=== PATIENT | male | born 1975 | race Caucasian/White ===

== ENCOUNTER 2022-08-20 16:02 | Inpatient (IN) | payer OTHER, SELFPAY ==
--- NOTE | ~2022-08-20 | XR_ITS ---
EXAMINATION: XR KNEE, RIGHT CLINICAL INFORMATION: Skin infection COMPARISON: None TECHNIQUE: Two views of the right knee. FINDINGS: No acute fracture or dislocation. No joint effusion. Mild soft tissue prominence anterior to the patella and patellar ligament. No radiopaque foreign bodies. XR/XR knee RT 2V IMPRESSION: No acute osseous abnormalities. Mild skin thickening anterior to the inferior patella and patellar ligament.
--- NOTE | ~2022-08-20 | US_ITS ---
EXAMINATION: US VENOUS ULTRASOUND WITH DOPPLER LOWER EXTREMITY, LEFT CLINICAL INFORMATION: Left leg swelling for 2 days. COMPARISON: None TECHNIQUE: Ultrasound of the deep veins is performed from the hip to the calf with compression sonography and color and pulse Doppler assessment. Spectral analysis with color-flow imaging is performed. FINDINGS: There is normal venous compression and respiratory variation and augmented flow. The visualized common femoral vein, superficial femoral vein, profunda femoral vein, popliteal vein, and the trifurcation region shows no evidence of deep venous thrombosis. There is no significant popliteal fossa cyst. Couple of small morphologically normal-appearing left inguinal lymph nodes noted incidentally. Subcutaneous edema in the calf also seen. If the patient's symptoms persist, followup ultrasound in 5 days 7 days might be of value to exclude proximal propagation from a non-visualized calf vein. US/US venous duplex LE IMPRESSION: No DVT demonstrated in the left lower extremity.
--- NOTE | ~2022-08-20 | CT_ITS ---
EXAMINATION: CT HAND WITH CONTRAST, RIGHT CLINICAL INFORMATION: Abscess COMPARISON: None TECHNIQUE: Multidetector CT imaging of the right hand was performed after the administration of 85 mL Omnipaque 350 intravenous contrast. Coronal and sagittal reformats created on an independent workstation were reviewed. This CT examination was performed using dose optimization techniques as appropriate, variously including the following: *Automated exposure control *Adjustment of mA and/or kV according to patient size (this includes techniques or standardized protocols for targeted exams where dose is matched to indication/reason for exam; i.e. extremities or head) *Use of iterative reconstruction technique DLP: 131 mGy-cm FINDINGS: There is diffuse skin thickening and edema throughout the subcutaneous fat of the hand and distal wrist. There is ill-defined fluid superficial to the thenar musculature which does not appear to be peripherally enhancing. The palmar bursae and flexor tendon sheaths of the wrist show no abnormal fluid to suggest pulmonary bursitis or tenosynovitis, respectively. No periosteal reaction or cortical destruction to suggest osteomyelitis. CT/CT hand RT w IV con IMPRESSION: * Normal palmar bursae and tendon sheaths. * No evidence of osteomyelitis. * Diffuse subcutaneous edema present throughout the hand. There is more coalescent edema professionals of the thenar eminence (see cevallos images). A targeted ultrasound in this location could confirm that there is no drainable collection in this location, or collection at could be amenable to incision and drainage.
--- NOTE | ~2022-08-20 | CT_ITS ---
EXAMINATION: CT LEFT FOOT WITHOUT IV CONTRAST CLINICAL INFORMATION: Diabetic foot wound. Swelling. COMPARISON: None TECHNIQUE: Multidetector volumetric imaging was obtained through the left foot without contrast. Multiplanar reformatted images in coronal and sagittal orientations were submitted. This CT examination was performed using dose optimization techniques as appropriate, variously including the following: *Automated exposure control *Adjustment of mA and/or kV according to patient size (this includes techniques or standardized protocols for targeted exams where dose is matched to indication/reason for exam; i.e. extremities or head) *Use of iterative reconstruction technique DLP: 148 mGy-cm FINDINGS: There is diffuse soft tissue swelling and subcutaneous edema in the foot. The site of the known ulceration is not well seen. There is subtle skin irregularity at the plantar/lateral aspect of the midfoot over an area measuring approximately 1.4 x 2.4 cm. No underlying fluid collections or subcutaneous gas. At the plantar aspect of the 5th metatarsal head, there is an ill-defined 2 x 0.7 x 1 cm focus of near-fluid attenuation which may correspond to an adventitious bursa. A small abscess is on the differential, though less likely based upon location. No additional fluid collections are identified. Intrinsic foot musculature is unremarkable. No appreciable fatty replacement. No gas. Bone mineralization is normal. No areas of acute osteolysis are identified to indicate acute osteomyelitis. Osteophyte fragmentation at the dorsolateral aspect of the cuboid at the 4th and 5th TMT joint may be the result of prior trauma. No acute injuries in this region. Minimal osteoarthritis of the 4th and 5th TMT joints. Small chronic osseous fragments at the posterior margin of the talus may correspond to a small multipartite os trigonum. CT/CT foot LT wo IV con IMPRESSION: 1. Diffuse soft tissue swelling and subcutaneous edema in the ankle and foot. Possible shallow skin wound at the plantar lateral aspect of the midfoot. No underlying abscess. No subcutaneous gas or evidence of osteomyelitis. 2. A small adventitious bursa is suspected at the plantar/lateral margin of the 5th metatarsal head. Abscess in this region is less likely.
[2022-08-20 16:09] VITALS: BP 184/102; PULSE 96; O2SAT 97
[2022-08-20 16:50] VITALS: BP 117/65; PULSE 96; RESP 18; TEMP 36.4; O2SAT 97; BMI 36.2
[2022-08-20 17:18] LABS: MANUAL DIFF FLAG NO
[2022-08-20 17:28] LABS: D Dimer High Sensitivity 224 NG/ML
[2022-08-20 17:30] LABS: Lactic Acid 1.2 mmol/L (0.5-2.0)
[2022-08-20 17:31] LABS: Basophils Percent Auto 0.3 % (0-2); Eosinophils Absolute Auto 0.2 X10*3/uL (0.0-0.4); Eosinophils Percent Auto 1.4 % (0-4); Hematocrit 38.7 % (42.0-52.0); Hemoglobin 13.3 g/dl (14.0-18.0); Imm Gran Abs Auto 0.13 X10*3/uL (0.00-0.03); Lymphocytes Absolute Auto 1.9 X10*3/uL (1.2-4.9); Lymphocytes Percent Auto 14.5 % (20-40); Mean Corpuscular HGB Conc 34.4 g/dl (31.0-36.0); Mean Corpuscular Hemoglobin 29.8 pg (27.0-33.0); Mean Corpuscular Volume 86.6 fL (80.0-98.0); Mean Platelet Volume 10.7 fL (9.4-12.4); Monocytes Percent Auto 7.2 % (2-11); Neutrophils Percent Auto 75.6 % (45-73); Platelet Count 238 X10*3/uL (160-400); Red Blood Count 4.47 X10*6/uL (4.60-5.80); White Blood Count 13.2 X10*3/uL (4.8-10.8)
[2022-08-20 17:35] LABS: Alanine Aminotransferase 25 U/L (0-40); Albumin Level 4.2 g/dL (3.5-5.0); Alkaline Phosphatase 83 U/L (39-117); Anion Gap 17 (12-20); Aspartate Amino Transferase 18 U/L (5-37); Bilirubin Total 0.4 mg/dL (0.0-1.0); Blood Urea Nitrogen 14 mg/dL (9-16); Calcium 8.9 mg/dL (8.4-10.2); Carbon Dioxide 25 mmol/L (22-29); Chloride 99 mmol/L (96-108); Creatinine Clr Calc Pharmacy 125.4; Estimated Glomerular Filt Rate > 60; Glucose Random 207 mg/dL (60-115); Potassium 3.6 mmol/L (3.3-5.1); Sodium 137 mmol/L (135-145); Total Protein 7.2 g/dL (6.5-8.0)
[2022-08-20 21:38] VITALS: BP 124/64; PULSE 77; RESP 18; TEMP 36.2; O2SAT 98
[2022-08-20] MEDS: Ibuprofen 600 MG TABLET PO (21:47)
[2022-08-20 22:00] VITALS: BP 114/59; PULSE 72; RESP 14; TEMP 36.5; O2SAT 97
--- NOTE | 2022-08-20 22:46 | ED.GENADULT ---
HPI - General Adult General Chief complaint: Skin/Abscess/Foreign Body Stated complaint: LOWER LEG SWELLING + PAIN Time Seen by Provider: 08/20/22 22:30 Source: patient Mode of arrival: EMS Limitations: no limitations History of Present Illness HPI narrative: Patient diabetic IV drug user notices small scab on the right and and left knee 2- 3 days ago woke with a needle yesterday to drain the pimple in the hand, today patient overslept was semi responsive when family woke him up has increased redness to the left leg and swelling and pain in the right hand Related Data Allergies Allergy/AdvReac Type Severity Reaction Status Date / Time Penicillins [PENICILLINS] Allergy Unknown UNKNOWN Verified 08/20/22 16:50 Review of Systems Review of Systems: Yes all other systems are reviewed and are negative [facility] Social History Social History Advance Directives: No Advance Directives Information Provided: No Physical Exam ED Vital Signs: Vital Signs - 24 hr 08/20/22 16:50 08/20/22 21:38 08/20/22 22:00 Temperature 97.5 F 97.1 F 97.7 F Pulse Rate 96 77 72 Respiratory Rate 18 18 14 Blood Pressure 117/65 124/64 114/59 L Pulse Oximetry 97 98 97 Oxygen Delivery Method Room Air Room Air Room Air BMI result Body Mass Index 36.2 Appearance: Alert. Oriented X3. No acute distress. Eyes: PERRLA, No Nystagmus ENT: Pharynx normal. Oral Mucosa moist Neck: Normal inspection. Neck supple. CVS: Normal heart rate and rhythm. Pulses normal. Respiratory: No respiratory distress. Equal air entry bilateral, no wheezing/rales/rhonchi Abdomen: Soft and nontender. Bowel sounds are present, no mass palpable, no CVA tenderness Skin: Skin warm and dry. Normal skin color. Normal skin turgor. Extremities: Small scab left kneecap diffuse cellulitis and swelling of the left leg no abscess, right hand abscess at the right thenar prominence area Neuro: Oriented X 3. No motor deficit. No sensory deficit.No cerebellar signs , cranial nerves II-XII intact Extrem Hand/finger images: 1. Fluctuant abscess right thenar prominence with surrounding erythema 2. Small superficial abrasion abscess no fluctuance slight erythema around Upper/lower leg/hip images: 1. Small superficial callus no fluctuance see no pus discharge erythema all the way from knee to the ankle Procedures Abscess I/D Site: hand Side (if applicable): right Local Anesthetic: lidocaine 1% Amount of anesthesia used (mL): 5 Technique: incised with blade Amount of fluid expressed (mL): 5 Sent for culture/gram staining?: Yes Irrigation: No Packing used?: none Medical Decision Making MDM Narrative Medical decision making narrative: Patient with multiple abscesses IV drug use diabetic likely MRSA infection with cellulitis of left leg. Will admit patient for IV antibiotics cultures was taken from the abscess after I&D. Will admit patient for IV antibiotics Lab Data Lab results reviewed: Yes I reviewed the patient's lab results. Result diagrams: 08/20/22 17:10 08/20/22 17:10 Labs: Lab Results 08/20/22 08/20/22 08/20/22 Range/Units 17:10 17:10 17:10 WBC 13.2 H (4.8-10.8) X10*3/uL RBC 4.47 L (4.60-5.80) X10*6/uL Hgb 13.3 L (14.0-18.0) g/dl Hct 38.7 L (42.0-52.0) % MCV 86.6 (80.0-98.0) fL MCH 29.8 (27.0-33.0) pg MCHC 34.4 (31.0-36.0) g/dl RDW 13.0 (11.0-16.0) % Plt Count 238 (160-400) X10*3/uL MPV 10.7 (9.4-12.4) fL Immature Gran % (Auto) 1.0 H (0.0-0.4) % Neut % (Auto) 75.6 H (45-73) % Lymph % (Auto) 14.5 L (20-40) % Jack % (Auto) 7.2 (2-11) % Eos % (Auto) 1.4 (0-4) % Baso % (Auto) 0.3 (0-2) % Lymph # (Auto) 1.9 (1.2-4.9) X10*3/uL Jack # (Auto) 1.0 (0.1-1.2) X10*3/uL Eos # (Auto) 0.2 (0.0-0.4) X10*3/uL Baso # (Auto) 0.0 (0.0-0.2) X10*3/uL Abs Immat Gran (auto) 0.13 H (0.00-0.03) X10*3/uL Absolute Neuts (auto) 10.0 H (2.0-8.3) x10*3/uL Absolute Nucleated RBC 0.000 (0.0-0.012) X10*3/uL Nucleated RBC % (auto) 0.0 (0.0-0.2) /100WBC PT (10.0-13.1) SEC INR (0.9-1.1) D-Dimer High Sensitivty 224 NG/ML Sodium 137 (135-145) mmol/L Potassium 3.6 (3.3-5.1) mmol/L Chloride 99 (96-108) mmol/L Carbon Dioxide 25 (22-29) mmol/L Anion Gap 17 (12-20) BUN 14 (9-16) mg/dL Creatinine 1.01 (0.5-1.4) mg/dL Estim Creat Clear Calc 125.4 Estimated GFR > 60 Random Glucose 207 H (60-115) mg/dL Lactic Acid (0.5-2.0) mmol/L Calcium 8.9 (8.4-10.2) mg/dL Total Bilirubin 0.4 (0.0-1.0) mg/dL AST 18 (5-37) U/L ALT 25 (0-40) U/L Alkaline Phosphatase 83 (39-117) U/L Total Protein 7.2 (6.5-8.0) g/dL Albumin 4.2 (3.5-5.0) g/dL COVID-19 (SOFY) (Negative) COVID-19 Clin Com 08/20/22 08/20/22 08/20/22 Range/Units 17:10 23:41 23:42 WBC (4.8-10.8) X10*3/uL RBC (4.60-5.80) X10*6/uL Hgb (14.0-18.0) g/dl Hct (42.0-52.0) % MCV (80.0-98.0) fL MCH (27.0-33.0) pg MCHC (31.0-36.0) g/dl RDW (11.0-16.0) % Plt Count (160-400) X10*3/uL MPV (9.4-12.4) fL Immature Gran % (Auto) (0.0-0.4) % Neut % (Auto) (45-73) % Lymph % (Auto) (20-40) % [place] % (Auto) (2-11) % Eos % (Auto) (0-4) % Baso % (Auto) (0-2) % Lymph # (Auto) (1.2-4.9) X10*3/uL [place] # (Auto) (0.1-1.2) X10*3/uL Eos # (Auto) (0.0-0.4) X10*3/uL Baso # (Auto) (0.0-0.2) X10*3/uL Abs Immat Gran (auto) (0.00-0.03) X10*3/uL Absolute Neuts (auto) (2.0-8.3) x10*3/uL Absolute Nucleated RBC (0.0-0.012) X10*3/uL Nucleated RBC % (auto) (0.0-0.2) /100WBC PT 12.1 (10.0-13.1) SEC INR 1.1 (0.9-1.1) D-Dimer High Sensitivty NG/ML Sodium (135-145) mmol/L Potassium (3.3-5.1) mmol/L Chloride (96-108) mmol/L Carbon Dioxide (22-29) mmol/L Anion Gap (12-20) BUN (9-16) mg/dL Creatinine (0.5-1.4) mg/dL Estim Creat Clear Calc Estimated GFR Random Glucose (60-115) mg/dL Lactic Acid 1.2 (0.5-2.0) mmol/L Calcium (8.4-10.2) mg/dL Total Bilirubin (0.0-1.0) mg/dL AST (5-37) U/L ALT (0-40) U/L Alkaline Phosphatase (39-117) U/L Total Protein (6.5-8.0) g/dL Albumin (3.5-5.0) g/dL COVID-19 (SOFY) Negative (Negative) COVID-19 Clin Com See Note Discharge Plan Discharge Clinical Impression: Cellulitis, Abscess of skin or subcutaneous tissue Patient Disposition: Admitted As Inpatient
[2022-08-21 00:06] LABS: COVID-19 Test Negative (Negative)
[2022-08-21 00:11] LABS: INTERNATIONAL NORM RATIO 1.1 (0.9-1.1); Prothrombin Time 12.1 SEC (10.0-13.1)
[2022-08-21] MEDS: 0.9 % Sodium Chloride 1,000 ML 999 ML IV (00:20)
[2022-08-21] MEDS: cefTRIAXone sodium 1 GM in 0.9 % Sodium Chloride 50 ML IV (00:21)
[2022-08-21] MEDS: Lidocaine HCl 1 % MPF 5 ML VIAL 30 ML INFILTRATI (00:27)
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
[2022-08-21] MEDS: iohexoL 350 MG/ML 100 ML INFUS..BTL IV (01:12)
[2022-08-21 01:31] VITALS: BP 131/76; PULSE 81; RESP 20; O2SAT 95
[2022-08-21] MEDS: Enoxaparin Sodium 40 MG/0.4 ML SYRINGE SUBCUT (02:30)
[2022-08-21 07:18] LABS: Glucose, Whole Blood 147 mg/dL (60-115)
[2022-08-21] MEDS: Morphine Sulfate 4 MG/ML CARTRIDGE IVPUSH ×4 (07:24→22:02)
[2022-08-21] MEDS: cefEPime HCl 2 GM in 0.9 % Sodium Chloride 50 ML IV ×2 (07:24→15:55)
--- NOTE | 2022-08-21 08:03 | PM.EVENT ---
Event Note Date of Service: 08/21/22 Event Note: 46-year-old male with past medical history of IV drug use presents to the hospital with pain in his hand found to have cellulitis of both hand and left knee Acute cellulitis right hand, left knee continue IV antibiotics follow cultures abscess of skin or subcutaneous tissue mostly seen in the hand I&D attempted in the ED CT shows evidence of abscess/abnormal collection no evidence of tenosynovitis or bursitis continue IV antibiotics IV drug user monitor for withdrawal diabetes low-dose sliding scale insulin diabetic diet Diabetic foot wound pain and swelling CT pending
[2022-08-21 08:04] VITALS: BP 135/65; PULSE 84; RESP 14; TEMP 36.7; O2SAT 92
[2022-08-21 08:37] LABS: MANUAL DIFF FLAG NO
[2022-08-21 08:41] LABS: Basophils Percent Auto 0.2 % (0-2); Eosinophils Absolute Auto 0.2 X10*3/uL (0.0-0.4); Eosinophils Percent Auto 1.9 % (0-4); Hematocrit 38.4 % (42.0-52.0); Hemoglobin 12.9 g/dl (14.0-18.0); Imm Gran Abs Auto 0.03 X10*3/uL (0.00-0.03); Imm Gran Pct Auto 0.3 % (0.0-0.4); Lymphocytes Absolute Auto 1.1 X10*3/uL (1.2-4.9); Lymphocytes Percent Auto 12.1 % (20-40); Mean Corpuscular HGB Conc 33.6 g/dl (31.0-36.0); Mean Corpuscular Hemoglobin 28.9 pg (27.0-33.0); Mean Corpuscular Volume 85.9 fL (80.0-98.0); Mean Platelet Volume 10.5 fL (9.4-12.4); Monocytes Absolute Auto 0.7 X10*3/uL (0.1-1.2); Monocytes Percent Auto 7.6 % (2-11); Neutrophils Absolute Auto 7.2 x10*3/uL (2.0-8.3); Neutrophils Percent Auto 77.9 % (45-73); Platelet Count 211 X10*3/uL (160-400); Red Blood Count 4.47 X10*6/uL (4.60-5.80); Red Cell Distribution Width 13.2 % (11.0-16.0); White Blood Count 9.3 X10*3/uL (4.8-10.8)
[2022-08-21 08:55] LABS: C Reactive Protein 10.65 mg/dL (< or = 0.50); Creatinine Clr Calc Pharmacy 158.3; Estimated Glomerular Filt Rate > 60
[2022-08-21 08:56] LABS: Anion Gap 15 (12-20); Blood Urea Nitrogen 9 mg/dL (9-16); Calcium 8.7 mg/dL (8.4-10.2); Carbon Dioxide 25 mmol/L (22-29); Chloride 102 mmol/L (96-108); Creatinine Clr Calc Pharmacy 160.3; Estimated Glomerular Filt Rate > 60; Glucose Random 243 mg/dL (60-115); Potassium 3.8 mmol/L (3.3-5.1); Sodium 138 mmol/L (135-145)
[2022-08-21] MEDS: Nicotine 14 MG PATCH.TD24 TRANSDERMA (09:06)
[2022-08-21] MEDS: cloNIDine HCL 0.1 MG TABLET PO ×3 (09:06→21:35)
[2022-08-21 09:27] LABS: Erythrocyte Sedimentation Rate 27 MM/HR (0-15)
--- NOTE | 2022-08-21 10:16 | PHA.PROG ---
Admission Date/Time: August 21, 2022 00:45 Indication: Weight in k.109 kg Serum Creatinine - Last 168 Hours 08/20/22 08/21/22 08/21/22 17:10 08:26 08:26 Creatinine 1.01 0.79 0.80 Estimated CrCl and GFR - Last 168 Hours 08/20/22 08/21/22 08/21/22 17:10 08:26 08:26 Estim Creat Clear Calc 125.4 160.3 158.3 Estimated GFR > 60 > 60 > 60 Vancomycin Loading Dose: 2000 Current Vancomycin Dosing Regimen: 1200 Vancomycin Monitoring using AUC goal of 400 - 600 range with trough as surrogate marker: 460 Date and Time for next Vancomycin Level to be drawn: 08/22 1100 Pharmacist Comments on Vancomycin Plan: Vancomycin dosing will take advantage of Telestream as a clinical decision support tool that uses Bayesian modeling to calculate individual patient's pharmacokinetic parameters and forecast the patient's drug concentration time course with the target goal AUC 24 range of 400 - 600 mg/L/hr.
--- NOTE | 2022-08-21 11:02 | PHA.MEDREC ---
Pharmacy Consult ? Medication Reconciliation Pharmacy has completed the medication reconciliation. Confirmed medication list with patient. He states still taking gabapentin, lithium, ezetimibe, and novolog even though they have not been filled since 02/14/22.
--- NOTE | 2022-08-21 11:33 | MHC.CM.PN ---
CM ATTEMPTED TO SEE PT WHO WAS SLEEPING CM TO RETURN
[2022-08-21 11:57] LABS: Glucose, Whole Blood 166 mg/dL (60-115)
--- NOTE | 2022-08-21 12:16 | MHC.CM.PN ---
PT REPORTS HE LIVES ALONE AND IS INDEPENDENT WITH CARE PT DENIES USE OF DME OR HOME SERVICES PT REPORTS HE IS COVID VAX HE DOES NOT HAVE A HCP AND DECLINES TO COMPLETE ONE AT THIS TIME HE REPORTS HIS PCP IS LATOYA NEVES AT [facility] IMM DELIVERED, COPY SENT TO [facility] CURRENT DC PLAN IS HOME WITH NO SERVICES PT WILL ARRANGE TRANSPORT
[2022-08-21] MEDS: vancomycin HCL 1,250 MG in 0.9 % Sodium Chloride 250 ML 166.67 MG IV (13:43)
[2022-08-21] MEDS: Insulin Lispro 100 UNIT/ML 3 ML VIAL SUBCUT ×3 (13:43→21:36)
[2022-08-21 15:43] VITALS: BP 117/65; PULSE 96; RESP 16; TEMP 36.8; O2SAT 97
--- NOTE | 2022-08-21 15:44 | PC.NURSE ---
ASSUMED CARE OF PATIENT AT 1500 ,VITALS TAKEN,WARM BLANKET GIVEN ,EMPTY URINAL .
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
--- NOTE | 2022-08-21 18:14 | PC.NURSE ---
Pt received from ED with several areas of discomfort but primarily his right hand. Medicated for pain with morphine
[2022-08-21 18:31] LABS: Glucose, Whole Blood 210 mg/dL (60-115)
[2022-08-21 20:40] VITALS: BP 143/76; PULSE 76; RESP 18; TEMP 36.2; O2SAT 98
[2022-08-21 21:23] LABS: Glucose, Whole Blood 232 mg/dL (60-115)
[2022-08-21] MEDS: ondansetron HCL 4 MG/2 ML VIAL IVPUSH (21:40)
--- NOTE | 2022-08-21 21:42 | PC.NURSE ---
Pt meds were administered, Pt V/S are stable. Pt requested pain meds d/t pain 10/10 throughout his body.
[2022-08-21 22:02] VITALS: RESP 20
[2022-08-22] VITALS (9 sets, daily range): BP systolic 107–134; BP diastolic 59–81; PULSE 83–94; RESP 16–20; TEMP 36.3–37.1; O2SAT 93–97; BMI 33.3
[2022-08-22] MEDS: 0.9 % Sodium Chloride Flush 3 ML SYRINGE IVFLUSH ×2 (00:05→14:06)
[2022-08-22] MEDS: cefEPime HCl 2 GM in 0.9 % Sodium Chloride 50 ML IV ×3 (00:05→16:48)
[2022-08-22] MEDS: Enoxaparin Sodium 40 MG/0.4 ML SYRINGE SUBCUT (00:58)
[2022-08-22] MEDS: vancomycin HCL 1,250 MG in 0.9 % Sodium Chloride 250 ML 166.67 MG IV ×3 (00:59→20:44)
[2022-08-22] MEDS: ondansetron HCL 4 MG/2 ML VIAL IVPUSH (05:36)
[2022-08-22] MEDS: Morphine Sulfate 4 MG/ML CARTRIDGE IVPUSH ×3 (05:36→20:45)
[2022-08-22 07:16] LABS: Anion Gap 13 (12-20); Blood Urea Nitrogen 6 mg/dL (9-16); Calcium 8.6 mg/dL (8.4-10.2); Carbon Dioxide 24 mmol/L (22-29); Chloride 107 mmol/L (96-108); Creatinine Clr Calc Pharmacy 166.6; Creatinine Clr Calc Pharmacy 171.1; Estimated Glomerular Filt Rate > 60; Glucose Random 153 mg/dL (60-115); Potassium 4.1 mmol/L (3.3-5.1); Sodium 140 mmol/L (135-145)
[2022-08-22 08:13] LABS: Glucose, Whole Blood 156 mg/dL (60-115)
[2022-08-22] MEDS: cloNIDine HCL 0.1 MG TABLET PO ×3 (08:27→20:44)
[2022-08-22] MEDS: Nicotine 14 MG PATCH.TD24 TRANSDERMA (08:27)
--- NOTE | 2022-08-22 09:04 | P.CDIC_ITS ---
CDI Concurrent Query Documentation Clarification: PHYSICIAN'S DOCUMENTATION REQUEST Date of Query: 08/22/22904 Patient Name: Edenilson Edawrds Admit Date: 08/21/22 Dear Doctor, A review of the medical record indicates additional documentation may be needed. Please review below and update the documentation accordingly. Risk Factors/Clinical Indicators/Treatments BMI: 36.2 If possible, please provide an associated diagnosis related to the abnormal BMI, such as: For a BMI >= 30: * Overweight * Obesity * Due to excess calories * Drug induced * Due to other cause Other Use of terms such as suspected, likely, concern for, or probable (associated with a specific diagnosis that is being evaluated, monitored, or treated as if it exists) are acceptable and can be coded in the inpatient setting, when documented at the time of discharge. Thank you, Barbara Dodd [facility], CDIS Extension: [phone] Please use your independent medical judgment in providing your response. THIS QUERY IS PART OF THE PERMANENT MEDICAL RECORD
--- NOTE | 2022-08-22 09:58 | HO.PM.IMPN ---
Subjective Subjective Date of Service: 08/22/22 Review of Systems Follow up right hand abscess still with pain and swelling Physical Exam Vital Signs: Vital Signs: Last Vital Signs Temp 97.9 F 08/22/22 08:40 Pulse 93 08/22/22 08:40 Resp 18 08/22/22 08:40 BP 125/64 08/22/22 08:40 Pulse Ox 96 08/22/22 08:40 O2 Del Method 08/22/22 08:40 BMI result Body Mass Index 36.2 Appearing in no acute distress lung sounds are clear to auscultation heart regular rate rhythm, clear S1, S2 positive bowel sounds, abdomen is soft, nontender neuro patient is alert x3, no focal deficits Objective Data Active Medications Acetaminophen (Acetaminophen 325 Mg Tablet) 650 mg PO Q6H PRN PRN Reason: Pain, Mild (Pain Scale 1-3) Clonidine HCl (Clonidine Hcl 0.1 Mg Tablet) 0.1 mg PO TID [facility]; Protocol Last Admin: 08/22/22 08:27 Dose: 0.1 mg Documented By: OPAL Dextrose (Dextrose 50 % 25 Gm/50 Ml Syringe) 25 gm IVPUSH Q15M PRN; Protocol PRN Reason: per Hypoglycemia Standing Ord. Docusate Sodium (Docusate Sodium 100 Mg Capsule) 100 mg PO DAILY PRN PRN Reason: Constipation Enoxaparin Sodium (Enoxaparin Sodium 40 Mg/0.4 Ml Syringe) 40 mg SUBCUT Q24H [facility] Last Admin: 08/22/22 00:58 Dose: 40 mg Documented By: NO Glucose (Glucose Gel 15 Gm Gel..Gram.) 15 gm PO Q15M PRN; Protocol PRN Reason: per Hypoglycemia Standing Ord. Cefepime HCl 2 gm/ Sodium (Chloride) 50 mls @ 100 mls/hr IV Q8H [facility] Last Admin: 08/22/22 08:29 Dose: 100 mls/hr Documented By: OPAL Vancomycin HCl 1,250 mg/ (Sodium Chloride) 250 mls @ 166.667 mls/hr IV Q12H [facility] Last Infusion: 08/22/22 02:29 Dose: 0 mls/hr Documented By: NO Insulin Human Lispro (Insulin Lispro 100 Unit/Ml 3 Ml Vial) 0 unit SUBCUT QIDACHS [facility]; Protocol Last Admin: 08/22/22 08:28 Dose: Not Given Documented By: OPAL Non-Admin Reason: No Insulin Coverage Lorazepam (Lorazepam 1 Mg Tablet) 1 mg PO Q4H PRN PRN Reason: anxiety/restlessness Morphine Sulfate (Morphine Sulfate 4 Mg/Ml Cartridge) 4 mg IVPUSH Q4H PRN; Protocol PRN Reason: Pain, Severe (Pain Scale 7-10) Last Admin: 08/22/22 05:36 Dose: 4 mg Documented By: NO Nicotine (Nicotine 14 Mg Patch.Td24) 14 mg TRANSDERMA DAILY [facility] Last Admin: 08/22/22 08:27 Dose: 14 mg Documented By: OPAL Ondansetron HCl (Ondansetron Hcl 4 Mg/2 Ml Vial) 4 mg IVPUSH Q8H PRN PRN Reason: Nausea and Vomiting Last Admin: 08/22/22 05:36 Dose: 4 mg Documented By: NO Oxycodone HCl (Oxycodone Hcl Immed Release 5 Mg Tablet) 10 mg PO Q4H PRN PRN Reason: Pain, Mild (Pain Scale 1-3) Pharmacy Consult (Consult Rx Perform Med Rec) 1 each MISCELLANE ONCE PRN PRN Reason: Consult order Sodium Chloride (0.9 % Sodium Chloride Flush 3 Ml Syringe) 3 ml IVFLUSH QSHIFT [facility] Last Admin: 08/22/22 09:26 Dose: Not Given Documented By: OPAL Non-Admin Reason: IV Running Labs CBC & Chem 7: 08/21/22 08:26 08/22/22 06:49 Labs: Laboratory Results - last 24 hr 08/21/22 08/21/22 08/21/22 11:49 18:26 21:18 Anion Gap Estim Creat Clear Calc Estimated GFR POC Glucose 166 H 210 H 232 H Random Glucose Calcium 08/22/22 08/22/22 08/22/22 06:49 06:49 08:09 Anion Gap 13 Estim Creat Clear Calc 166.6 171.1 Estimated GFR > 60 > 60 POC Glucose 156 H Random Glucose 153 H D Calcium 8.6 Microbiology Microbiology Results: Microbiology 08/20/22 23:52 Gram Stain - Final Hand Right Routine Culture - Preliminary Culture in progress. 08/20/22 23:41 Blood Culture - Preliminary Blood - Venous No growth after 24 hours. 08/20/22 23:41 Blood Culture - Preliminary Blood - Venous No growth after 24 hours. Assessment and Plan (1) IV drug user: Status: Acute (2) Abscess of skin or subcutaneous tissue: Status: Acute Plan 46-year-old male with past medical history of IV drug use presents to the hospital with pain in his hand found to have cellulitis of both hand and left knee Acute cellulitis Still with erythema and edema right hand, left knee continue IV antibiotics follow cultures abscess of skin or subcutaneous tissue mostly seen in the hand I&D attempted in the ED CT shows evidence of abscess/abnormal collection no evidence of tenosynovitis or bursitis continue IV antibiotics still swollen and painful, ortho consult pending, may need further I&D diabetes low-dose sliding scale insulin diabetic diet Diabetic foot wound pain and swelling CT neg for abscess SAD addiction consult for community resources DVT prophylaxis with Lovenox Attending Dr. Reese Full code sign Continue hospitalization for treatment of cellulitis to his right hand Quality Stroke Does the patient have a stroke diagnosis?: No VTE Prior VTE?: No VTE Risk Level:: Medical - moderate - high VTE Device Contraindication: Treatment Not Indicated VTE Drug Contraindication: N/A - Med Ordered
[2022-08-22] MEDS: oxyCODONE HCl Immed Release 5 MG TABLET 10 MG PO ×3 (11:24→23:03)
[2022-08-22 11:32] LABS: Vancomycin Random 5.6 mcg/mL (15-20)
--- NOTE | 2022-08-22 11:54 | HE.PHANOTE ---
VANCO DOSING ADJUSTMENT BASED OF TROUGH OF 5.6. DOSE INCREASED TO 1250 Q 8 HOURS. NEXT TROUGH AT 08/23 @ 1000
--- NOTE | 2022-08-22 12:23 | PC.NURSE ---
aox4 amb with steady gait, pt with multiple abscess on hands and arms, weeping wounds cleaned and dressed this morning. continue with iv antibiotics, tolerating po, medicated prn for pain. pt needs being met
[2022-08-22 12:41] LABS: Glucose, Whole Blood 209 mg/dL (60-115)
[2022-08-22] MEDS: Insulin Lispro 100 UNIT/ML 3 ML VIAL SUBCUT ×3 (13:07→20:43)
[2022-08-22 16:18] LABS: Glucose, Whole Blood 269 mg/dL (60-115)
--- NOTE | 2022-08-22 18:39 | P.CONOP_ITS ---
History of Present Illness HPI Consult date: 08/22/22 Chief complaint: cellulitis, abscess Narrative: 46-year-old male with past medical history of diabetes, hypertension, bipolar disorder, IV drug user presents to the hospital with complaints of swelling in his right hand for the past 2 days.? He states he injected cocaine into the hand and later developed swelling, redness and drainage. He tried to express some pus but was not successful. On arrival to the ED patient hemodynamically stable with no significant abnormal vitals Labs are significant for WBC count of 13.2, labs otherwise unremarkable Venous duplex of the left lower extremity negative, head CT shows diffuse subcut aneous edema present throughout the hand, there is an ill-defined fluid superficial to the sign or musculature she does not appear to be peripherally enhancing, no evidence of tenosynovitis or bursitis, X-ray of the knee shows mild scale thickening anterior to the anterior patella Patient started on IV antibiotics he will be admitted for further management- orthopedics consuled for further recommendations of right hand abscess Review of Systems Constitutional: Comments: per hpi [facility] Past Medical History Medical History (Updated 08/21/22 @ 06:28 by Eduarda Moreland MD) Bipolar disorder Diabetes Hypertension Polysubstance abuse Family History Family History (Updated 08/21/22 @ 06:28 by Eduarda Moreland MD) Other No family history of coronary artery disease Surgical History Surgical History (Updated 08/21/22 @ 06:28 by Eduarda Moreland MD) No history of previous surgery Social History Social History (Updated 08/21/22 @ 06:33 by Eduarda Moreland MD) Household Members: None Housing: Apartment Do you presently have visiting nurse or other home services: No Alcohol intake: current Patient Tobacco Use Status: Current everyday Tobacco user Tobacco use type: Cigarette Cigarette Packs Per Day: 0.5 Cigarettes Per Day: 7 Years Smoked: 20 Substance Use Type: Crack/Cocaine and Marijuana Advance Directives Date on File: 08/21/22 service: No Current occupational status: unemployed Meds Allergies Allergy/AdvReac Type Severity Reaction Status Date / Time Penicillins [PENICILLINS] Allergy Unknown UNKNOWN Verified 08/20/22 16:50 Active Medications: Current Medications Acetaminophen (Acetaminophen 325 Mg Tablet) 650 mg PO Q6H PRN PRN Reason: Pain, Mild (Pain Scale 1-3) Clonidine HCl (Clonidine Hcl 0.1 Mg Tablet) 0.1 mg PO TID [facility]; Protocol Last Admin: 08/22/22 14:06 Dose: 0.1 mg Dextrose (Dextrose 50 % 25 Gm/50 Ml Syringe) 25 gm IVPUSH Q15M PRN; Protocol PRN Reason: per Hypoglycemia Standing Ord. Docusate Sodium (Docusate Sodium 100 Mg Capsule) 100 mg PO DAILY PRN PRN Reason: Constipation Enoxaparin Sodium (Enoxaparin Sodium 40 Mg/0.4 Ml Syringe) 40 mg SUBCUT Q24H [facility] Last Admin: 08/22/22 00:58 Dose: 40 mg Glucose (Glucose Gel 15 Gm Gel..Gram.) 15 gm PO Q15M PRN; Protocol PRN Reason: per Hypoglycemia Standing Ord. Cefepime HCl 2 gm/ Sodium (Chloride) 50 mls @ 100 mls/hr IV Q8H [facility] Last Infusion: 08/22/22 17:25 Dose: Infused Vancomycin HCl 1,250 mg/ (Sodium Chloride) 250 mls @ 166.667 mls/hr IV Q8H [facility] Last Infusion: 08/22/22 14:48 Dose: Infused Clindamycin Phosphate (Cleocin) 600 mg in 50 mls @ 100 mls/hr IV PREOP ONE Stop: 08/23/22 06:29 Insulin Human Lispro (Insulin Lispro 100 Unit/Ml 3 Ml Vial) 0 unit SUBCUT QIDACHS [facility]; Protocol Last Admin: 08/22/22 16:47 Dose: 6 unit Lorazepam (Lorazepam 1 Mg Tablet) 1 mg PO Q4H PRN PRN Reason: anxiety/restlessness Morphine Sulfate (Morphine Sulfate 4 Mg/Ml Cartridge) 4 mg IVPUSH Q4H PRN; Protocol PRN Reason: Pain, Severe (Pain Scale 7-10) Last Admin: 08/22/22 14:06 Dose: 4 mg Nicotine (Nicotine 14 Mg Patch.Td24) 14 mg TRANSDERMA DAILY [facility] Last Admin: 08/22/22 08:27 Dose: 14 mg Ondansetron HCl (Ondansetron Hcl 4 Mg/2 Ml Vial) 4 mg IVPUSH Q8H PRN PRN Reason: Nausea and Vomiting Last Admin: 08/22/22 05:36 Dose: 4 mg Oxycodone HCl (Oxycodone Hcl Immed Release 5 Mg Tablet) 10 mg PO Q4H PRN PRN Reason: Pain, Mild (Pain Scale 1-3) Last Admin: 08/22/22 17:07 Dose: 10 mg Pharmacy Consult (Consult Rx Perform Med Rec) 1 each MISCELLANE ONCE PRN PRN Reason: Consult order Sodium Chloride (0.9 % Sodium Chloride Flush 3 Ml Syringe) [facility] Last Admin: 08/22/22 14:06 Dose: 3 ml Home Medications Medication Instructions Recorded Confirmed Last Taken Type atorvastatin 40 mg tablet 40 mg PO QAM 08/21/22 08/21/22 08/20/22 History bupropion HCl 150 mg tablet,12 hr 2 tab PO QAM 08/21/22 08/21/22 08/20/22 History sustained-release clonidine HCl 0.1 mg tablet 1 tab PO DAILY PRN Sleep 08/21/22 08/21/22 08/20/22 History ezetimibe 10 mg tablet 1 tab PO DAILY 08/21/22 08/21/22 08/20/22 History gabapentin 300 mg capsule 1 cap PO DAILY 08/21/22 08/21/22 08/20/22 History hydroxyzine HCl 25 mg tablet 1 tab PO Q12H PRN Anxiety 08/21/22 08/21/22 08/20/22 History insulin aspart U-100 100 unit/mL 10 unit subcut TID 08/21/22 08/21/22 08/20/22 History subcutaneous solution (Novolog U-100 Insulin aspart) insulin detemir U-100 100 unit/mL 50 unit subcut BID 08/21/22 08/21/22 08/20/22 History (3 mL) subcutaneous pen (Levemir FlexTouch U-100 Insulin) lisinopril 5 mg tablet 1 tab PO DAILY 08/21/22 08/21/22 08/20/22 History lithium carbonate 300 mg tablet 1 tab PO BID 08/21/22 08/21/22 08/20/22 History metformin 1,000 mg tablet 1,000 mg PO BID 08/21/22 08/21/22 08/20/22 History omeprazole 40 mg capsule,delayed 1 cap PO QAM 08/21/22 08/21/22 08/20/22 History release tirzepatide 5 mg/0.5 mL 5 mg subcut TU 08/21/22 08/21/22 08/15/22 History subcutaneous pen injector (Maximilianoundavid) Physical Exam Vital Signs: Vital Signs: Last Vital Signs Temp 97.7 F 08/22/22 15:48 Pulse 89 08/22/22 15:48 Resp 18 08/22/22 15:48 BP 128/72 08/22/22 15:48 Pulse Ox 94 08/22/22 15:48 O2 Del Method 08/22/22 15:48 BMI result Body Mass Index 33.3 Extrem: Other: RIght hand abscess along the thenar eminence of the thumb with purulant draiange. No pain along the flexor or extendor tendonds. He is able to flex and extend all digits. No pain or abscess in the web spaces of the hand. There is another abscess formation along the radial aspect of the wrist joint. Results Labs Result Diagrams: 08/21/22 08:26 08/22/22 06:49 Labs: Abnormal lab results 08/21/22 08/22/22 08/22/22 Range/Units 21:18 06:49 08:09 BUN 6 L (9-16) mg/dL POC Glucose 232 H 156 H (60-115) mg/dL Random Glucose 153 H D (60-115) mg/dL Random Vancomycin (15-20) mcg/mL 08/22/22 08/22/22 08/22/22 Range/Units 10:49 12:37 15:51 BUN (9-16) mg/dL POC Glucose 209 H 269 H (60-115) mg/dL Random Glucose (60-115) mg/dL Random Vancomycin 5.6 L (15-20) mcg/mL H & H 08/20/22 08/21/22 Range/Units 17:10 08:26 Hgb 13.3 L 12.9 L (14.0-18.0) g/dl Hct 38.7 L 38.4 L (42.0-52.0) % Coagulation 08/20/22 Range/Units 23:41 INR 1.1 (0.9-1.1) All other labs normal. Assessment and Plan (1) Cellulitis: Status: Acute (2) Abscess of skin or subcutaneous tissue: Status: Acute Plan Right hand and alamguer wrist abscess which should be taken to the OR for I&D. Encouraged patient remain NPO until I spoke with hand surgeon about the urgency, but patient ate at 2pm . Patient will remain NPO tonight with plans to bring to the OR tomorrow for I&D right hand and wrist. I explained the risk, benefits and alternatives. Risk including, but not limited to ongoing infection, blood clots, bleeding, nerve/tissue damage to surrounding areas. I answered all their questions and with their understanding they have consented to move forward with I&D right hand with Dr Hernandez. Procedures Date of Service Date of Service: 08/22/22
[2022-08-22 20:01] LABS: Glucose, Whole Blood 273 mg/dL (60-115)
[2022-08-23] VITALS (11 sets, daily range): BP systolic 95–142; BP diastolic 59–80; PULSE 65–91; RESP 11–18; TEMP 36.1–37.1; O2SAT 94–99
[2022-08-23] MEDS: cefEPime HCl 2 GM in 0.9 % Sodium Chloride 50 ML IV ×3 (00:59→22:17)
[2022-08-23] MEDS: 0.9 % Sodium Chloride Flush 3 ML SYRINGE IVFLUSH ×3 (00:59→20:43)
[2022-08-23] MEDS: oxyCODONE HCl Immed Release 5 MG TABLET 10 MG PO ×3 (03:42→22:24)
[2022-08-23] MEDS: vancomycin HCL 1,250 MG in 0.9 % Sodium Chloride 250 ML 166.67 MG IV ×3 (03:43→20:38)
[2022-08-23 06:20] LABS: Creatinine Clr Calc Pharmacy 159.8; Estimated Glomerular Filt Rate > 60
[2022-08-23 08:12] LABS: Glucose, Whole Blood 164 mg/dL (60-115)
[2022-08-23] MEDS: Morphine Sulfate 4 MG/ML CARTRIDGE IVPUSH ×3 (10:36→20:37)
[2022-08-23] MEDS: Lithium Carbonate 300 MG CAPSULE PO ×2 (10:37→20:38)
[2022-08-23] MEDS: buPROPion HCl XL 300 MG TAB.ER.24H PO (10:37)
[2022-08-23] MEDS: cloNIDine HCL 0.1 MG TABLET PO ×3 (10:37→20:38)
[2022-08-23] MEDS: Ezetimibe 10 MG TABLET PO (10:37)
[2022-08-23] MEDS: Gabapentin 300 MG CAPSULE PO (10:38)
[2022-08-23] MEDS: Insulin Lispro 100 UNIT/ML 3 ML VIAL SUBCUT (10:38)
[2022-08-23] MEDS: Insulin Glargine,Hum.rec.anlog 100 UNIT/ML 10 ML VIAL 35 UNIT SUBCUT ×2 (10:38→20:39)
[2022-08-23] MEDS: Nicotine 14 MG PATCH.TD24 TRANSDERMA (10:38)
[2022-08-23 11:34] LABS: Vancomycin Trough 11.5 mcg/mL (10.0-20.0)
--- NOTE | 2022-08-23 11:48 | MHC.CM.PN ---
PATIENT GOING FOR I&D TODAY. DC PLAN WILL BE HOME - SELF CARE. CASE MANAGEMENT FOLLOWING FOR ANY CHANGE TO PLAN.
[2022-08-23 11:57] LABS: Glucose, Whole Blood 128 mg/dL (60-115)
--- NOTE | 2022-08-23 12:55 | MHC.CM.PN ---
IMM DELIVERED TO FLOOR. PATIENT DENIES AND DOES NOT WANT TO SIGN. IMM LEFT IN MEDICAL RECORDS BIN
--- NOTE | 2022-08-23 15:32 | MHC.RECOVRN ---
Met with pt to check in and provide support. Pt reports feeling better and happy to have showered with own toiletries today. Pt had requested fentanyl test strips, these were provided. Pt declines other [facility] support at this time. T/w available as needed.
--- NOTE | 2022-08-23 17:01 | HO.ANESPROP2 ---
HPI - Anesthesia Eval Consult details Narrative: 46 M for I and D right hand and wrist and ID with left wrist . Patient with history of polysubstance abuse including Cocaine . Discussed with the surgeon and this is urgent so we will proceed . [facility] Active Problems Active Problems: All Active Problems (Updated 08/21/22 @ 06:28 by Eduarda Moreland MD) IV drug user (Acute) Cellulitis (Acute) Abscess of skin or subcutaneous tissue (Acute) Past Medical History Medical History (Updated 08/21/22 @ 06:28 by Eduarda Moreland MD) Bipolar disorder Diabetes Hypertension Polysubstance abuse Family History Family History (Updated 08/21/22 @ 06:28 by Eduarda Moreland MD) Other No family history of coronary artery disease Family history of problems with anesthesia: No Surgical History Surgical History (Updated 08/21/22 @ 06:28 by Eduarda Moreland MD) No history of previous surgery History of Problems with Anesthesia: Yes Social History Social History (Updated 08/21/22 @ 06:33 by Eduarda Moreland MD) Household Members: None Housing: Apartment Do you presently have visiting nurse or other home services: No Alcohol intake: current Patient Tobacco Use Status: Current everyday Tobacco user Tobacco use type: Cigarette Cigarette Packs Per Day: 0.5 Cigarettes Per Day: 7 Years Smoked: 20 Substance Use Type: Crack/Cocaine and Marijuana Advance Directives Date on File: 08/21/22 service: No Current occupational status: unemployed Meds Allergies Allergy/AdvReac Type Severity Reaction Status Date / Time Penicillins [PENICILLINS] Allergy Unknown UNKNOWN Verified 08/20/22 16:50 Active Medications: Current Medications Acetaminophen (Acetaminophen 325 Mg Tablet) 650 mg PO Q6H PRN PRN Reason: Pain, Mild (Pain Scale 1-3) Atorvastatin Calcium (Atorvastatin Calcium 40 Mg Tablet) 40 mg PO BEDTIME AJ Bupropion HCl (Bupropion Hcl Xl 300 Mg Tab.Er.24h) 300 mg PO DAILY AJ Last Admin: 08/23/22 10:37 Dose: 300 mg Clonidine HCl (Clonidine Hcl 0.1 Mg Tablet) 0.1 mg PO TID AJ; Protocol Last Admin: 08/23/22 15:08 Dose: 0.1 mg Dextrose (Dextrose 50 % 25 Gm/50 Ml Syringe) 25 gm IVPUSH Q15M PRN; Protocol PRN Reason: per Hypoglycemia Standing Ord. Docusate Sodium (Docusate Sodium 100 Mg Capsule) 100 mg PO DAILY PRN PRN Reason: Constipation Ezetimibe (Ezetimibe 10 Mg Tablet) 10 mg PO DAILY [facility] Last Admin: 08/23/22 10:37 Dose: 10 mg Enoxaparin Sodium (Enoxaparin Sodium 40 Mg/0.4 Ml Syringe) 40 mg SUBCUT Q24H [facility] Last Admin: 08/23/22 01:05 Dose: Not Given Gabapentin (Gabapentin 300 Mg Capsule) 300 mg PO DAILY [facility] Last Admin: 08/23/22 10:38 Dose: 300 mg Glucose (Glucose Gel 15 Gm Gel..Gram.) 15 gm PO Q15M PRN; Protocol PRN Reason: per Hypoglycemia Standing Ord. Hydroxyzine HCl (Hydroxyzine Hcl 25 Mg Tablet) 25 mg PO Q12H PRN PRN Reason: Anxiety Cefepime HCl 2 gm/ Sodium (Chloride) 50 mls @ 100 mls/hr IV Q8H [facility] Last Infusion: 08/23/22 11:47 Dose: Infused Vancomycin HCl 1,250 mg/ (Sodium Chloride) 250 mls @ 166.667 mls/hr IV Q8H [facility] Last Infusion: 08/23/22 14:09 Dose: Infused Insulin Glargine (Insulin Glargine,Hum.Rec.Anlog 100 Unit/Ml 10 Ml Vial) 35 unit SUBCUT BID [facility] Last Admin: 08/23/22 10:38 Dose: 35 unit Insulin Human Lispro (Insulin Lispro 100 Unit/Ml 3 Ml Vial) 0 unit SUBCUT QIDACHS [facility]; Protocol Last Admin: 08/23/22 12:28 Dose: Not Given [place] Carbonate ([place] Carbonate 300 Mg Capsule) 300 mg PO BID [facility] Last Admin: 08/23/22 10:37 Dose: 300 mg Lorazepam (Lorazepam 1 Mg Tablet) 1 mg PO Q4H PRN PRN Reason: anxiety/restlessness Morphine Sulfate (Morphine Sulfate 4 Mg/Ml Cartridge) 4 mg IVPUSH Q4H PRN; Protocol PRN Reason: Pain, Severe (Pain Scale 7-10) Last Admin: 08/23/22 15:07 Dose: 4 mg Nicotine (Nicotine 14 Mg Patch.Td24) 14 mg TRANSDERMA DAILY [facility] Last Admin: 08/23/22 10:38 Dose: 14 mg Omeprazole (Omeprazole 40 Mg Capsule.Dr) 40 mg PO DAILY@0630 [facility] Ondansetron HCl (Ondansetron Hcl 4 Mg/2 Ml Vial) 4 mg IVPUSH Q8H PRN PRN Reason: Nausea and Vomiting Last Admin: 08/22/22 05:36 Dose: 4 mg Oxycodone HCl (Oxycodone Hcl Immed Release 5 Mg Tablet) 10 mg PO Q4H PRN PRN Reason: Pain, Mild (Pain Scale 1-3) Last Admin: 08/23/22 12:37 Dose: 10 mg Pharmacy Consult (Consult Rx Perform Med Rec) 1 each MISCELLANE ONCE PRN PRN Reason: Consult order Sodium Chloride (0.9 % Sodium Chloride Flush 3 Ml Syringe) 3 ml IVFLUSH [facility] Last Admin: 08/23/22 10:39 Dose: 3 ml Home Medications Medication Instructions Recorded Confirmed Last Taken Type atorvastatin 40 mg tablet 40 mg PO QAM 08/21/22 08/21/22 08/20/22 History bupropion HCl 150 mg tablet,12 hr 2 tab PO QAM 08/21/22 08/21/22 08/20/22 History sustained-release clonidine HCl 0.1 mg tablet 1 tab PO DAILY PRN Sleep 08/21/22 08/21/22 08/20/22 History ezetimibe 10 mg tablet 1 tab PO DAILY 08/21/22 08/21/22 08/20/22 History gabapentin 300 mg capsule 1 cap PO DAILY 08/21/22 08/21/22 08/20/22 History hydroxyzine HCl 25 mg tablet 1 tab PO Q12H PRN Anxiety 08/21/22 08/21/22 08/20/22 History insulin aspart U-100 100 unit/mL 10 unit subcut TID 08/21/22 08/21/22 08/20/22 History subcutaneous solution (Novolog U-100 Insulin aspart) insulin detemir U-100 100 unit/mL 50 unit subcut BID 08/21/22 08/21/22 08/20/22 History (3 mL) subcutaneous pen (Levemir FlexTouch U-100 Insulin) lisinopril 5 mg tablet 1 tab PO DAILY 08/21/22 08/21/22 08/20/22 History lithium carbonate 300 mg tablet 1 tab PO BID 10/08/21/22 08/20/22 History metformin 1,000 mg tablet 1,000 mg PO BID 08/21/22 08/21/22 08/20/22 History omeprazole 40 mg capsule,delayed 1 cap PO QAM 08/21/22 08/21/22 08/20/22 History release tirzepatide 5 mg/0.5 mL 5 mg subcut TU 08/21/22 08/21/22 08/15/22 History subcutaneous pen injector (Mounjaro) Exam Exam Date and Time: August 23, 2022 1701 Height,Weight and Vital Signs: Height 6 ft Weight 111.4 kg Last Vital Signs Temp 97.9 F 08/23/22 16:18 Pulse 82 08/23/22 16:18 Resp 16 08/23/22 16:18 BP 118/72 08/23/22 16:18 Pulse Ox 96 08/23/22 16:18 O2 Del Method 08/23/22 16:18 Pertinent Lab Results Pertinent Lab Results: Laboratory Tests 08/20/22 08/20/22 08/20/22 17:10 17:10 17:10 WBC 13.2 H RBC 4.47 L Hgb 13.3 L Hct 38.7 L MCV 86.6 MCH 29.8 MCHC 34.4 RDW 13.0 Plt Count 238 MPV 10.7 Immature Gran % (Auto) 1.0 H Neut % (Auto) 75.6 H Lymph % (Auto) 14.5 L [place] % (Auto) 7.2 Eos % (Auto) 1.4 Baso % (Auto) 0.3 Lymph # (Auto) 1.9 [place] # (Auto) 1.0 Eos # (Auto) 0.2 Baso # (Auto) 0.0 Abs Immat Gran (auto) 0.13 H Absolute Neuts (auto) 10.0 H Absolute Nucleated RBC 0.000 Nucleated RBC % (auto) 0.0 ESR PT INR D-Dimer High Sensitivty 224 Sodium 137 Potassium 3.6 Chloride 99 Carbon Dioxide 25 Anion Gap 17 BUN 14 Creatinine 1.01 Estim Creat Clear Calc 125.4 Estimated GFR > 60 POC Glucose Random Glucose 207 H Lactic Acid Calcium 8.9 Total Bilirubin 0.4 AST 18 ALT 25 Alkaline Phosphatase 83 C-Reactive Protein Total Protein 7.2 Albumin 4.2 Vancomycin Trough Random Vancomycin COVID-19 (SOFY) COVID-19 Clin Com 08/20/22 08/20/22 08/20/22 17:10 23:41 23:42 WBC RBC Hgb Hct MCV MCH MCHC RDW Plt Count MPV Immature Gran % (Auto) Neut % (Auto) Lymph % (Auto) [place] % (Auto) Eos % (Auto) Baso % (Auto) Lymph # (Auto) [place] # (Auto) Eos # (Auto) Baso # (Auto) Abs Immat Gran (auto) Absolute Neuts (auto) Absolute Nucleated RBC Nucleated RBC % (auto) ESR PT 12.1 INR 1.1 D-Dimer High Sensitivty Sodium Potassium Chloride Carbon Dioxide Anion Gap BUN Creatinine Estim Creat Clear Calc Estimated GFR POC Glucose Random Glucose Lactic Acid 1.2 Calcium Total Bilirubin AST ALT Alkaline Phosphatase C-Reactive Protein Total Protein Albumin Vancomycin Trough Random Vancomycin COVID-19 (SOFY) Negative COVID-19 [employer] (SMB) Limited See Note 08/21/22 08/21/22 08/21/22 07:12 08:26 08:26 WBC 9.3 RBC 4.47 L Hgb 12.9 L Hct 38.4 L MCV 85.9 MCH 28.9 MCHC 33.6 RDW 13.2 Plt Count 211 MPV 10.5 Immature Gran % (Auto) 0.3 Neut % (Auto) 77.9 H Lymph % (Auto) 12.1 L [place] % (Auto) 7.6 Eos % (Auto) 1.9 Baso % (Auto) 0.2 Lymph # (Auto) 1.1 L [place] # (Auto) 0.7 Eos # (Auto) 0.2 Baso # (Auto) 0.0 Abs Immat Gran (auto) 0.03 Absolute Neuts (auto) 7.2 Absolute Nucleated RBC 0.000 Nucleated RBC % (auto) 0.0 ESR PT INR D-Dimer High Sensitivty Sodium 138 Potassium 3.8 Chloride 102 Carbon Dioxide 25 Anion Gap 15 BUN 9 Creatinine 0.79 Estim Creat Clear Calc 160.3 Estimated GFR > 60 POC Glucose 147 H Random Glucose 243 H Lactic Acid Calcium 8.7 Total Bilirubin AST ALT Alkaline Phosphatase C-Reactive Protein Total Protein Albumin Vancomycin Trough Random Vancomycin COVID-19 (SOFY) COVID-19 [employer] (SMB) Limited 08/21/22 08/21/22 08/21/22 08:26 08:26 08:26 WBC RBC Hgb Hct MCV MCH MCHC RDW Plt Count MPV Immature Gran % (Auto) Neut % (Auto) Lymph % (Auto) [place] % (Auto) Eos % (Auto) Baso % (Auto) Lymph # (Auto) [place] # (Auto) Eos # (Auto) Baso # (Auto) Abs Immat Gran (auto) Absolute Neuts (auto) Absolute Nucleated RBC Nucleated RBC % (auto) ESR 27 H PT INR D-Dimer High Sensitivty Sodium Potassium Chloride Carbon Dioxide Anion Gap BUN Creatinine 0.80 Estim Creat Clear Calc 158.3 Estimated GFR > 60 POC Glucose Random Glucose Lactic Acid Calcium Total Bilirubin AST ALT Alkaline Phosphatase C-Reactive Protein 10.65 H Total Protein Albumin Vancomycin Trough Random Vancomycin COVID-19 (SOFY) COVID-19 [employer] (SMB) Limited 08/21/22 08/21/22 08/21/22 11:49 18:26 21:18 WBC RBC Hgb Hct MCV MCH MCHC RDW Plt Count MPV Immature Gran % (Auto) Neut % (Auto) Lymph % (Auto) [place] % (Auto) Eos % (Auto) Baso % (Auto) Lymph # (Auto) [place] # (Auto) Eos # (Auto) Baso # (Auto) Abs Immat Gran (auto) Absolute Neuts (auto) Absolute Nucleated RBC Nucleated RBC % (auto) ESR PT INR D-Dimer High Sensitivty Sodium Potassium Chloride Carbon Dioxide Anion Gap BUN Creatinine Estim Creat Clear Calc Estimated GFR POC Glucose 166 H 210 H 232 H Random Glucose Lactic Acid Calcium Total Bilirubin AST ALT Alkaline Phosphatase C-Reactive Protein Total Protein Albumin Vancomycin Trough Random Vancomycin COVID-19 (SOFY) COVID-19 [employer] (SMB) Limited 08/22/22 08/22/22 08/22/22 06:49 06:49 08:09 WBC RBC Hgb Hct MCV MCH MCHC RDW Plt Count MPV Immature Gran % (Auto) Neut % (Auto) Lymph % (Auto) [place] % (Auto) Eos % (Auto) Baso % (Auto) Lymph # (Auto) [place] # (Auto) Eos # (Auto) Baso # (Auto) Abs Immat Gran (auto) Absolute Neuts (auto) Absolute Nucleated RBC Nucleated RBC % (auto) ESR PT INR D-Dimer High Sensitivty Sodium 140 Potassium 4.1 Chloride 107 Carbon Dioxide 24 Anion Gap 13 BUN 6 L Creatinine 0.76 0.74 Estim Creat Clear Calc 166.6 171.1 Estimated GFR > 60 > 60 POC Glucose 156 H Random Glucose 153 H D Lactic Acid Calcium 8.6 Total Bilirubin AST ALT Alkaline Phosphatase C-Reactive Protein Total Protein Albumin Vancomycin Trough Random Vancomycin COVID-19 (SOFY) COVID-19 [employer] (SMB) Limited 08/22/22 08/22/22 08/22/22 10:49 12:37 15:51 WBC RBC Hgb Hct MCV MCH MCHC RDW Plt Count MPV Immature Gran % (Auto) Neut % (Auto) Lymph % (Auto) [place] % (Auto) Eos % (Auto) Baso % (Auto) Lymph # (Auto) [place] # (Auto) Eos # (Auto) Baso # (Auto) Abs Immat Gran (auto) Absolute Neuts (auto) Absolute Nucleated RBC Nucleated RBC % (auto) ESR PT INR D-Dimer High Sensitivty Sodium Potassium Chloride Carbon Dioxide Anion Gap BUN Creatinine Estim Creat Clear Calc Estimated GFR POC Glucose 209 H 269 H Random Glucose Lactic Acid Calcium Total Bilirubin AST ALT Alkaline Phosphatase C-Reactive Protein Total Protein Albumin Vancomycin Trough Random Vancomycin 5.6 L COVID-19 (SOFY) COVID-19 [employer] (SMB) Limited 08/22/22 08/23/22 08/23/22 19:54 05:14 07:53 WBC RBC Hgb Hct MCV MCH MCHC RDW Plt Count MPV Immature Gran % (Auto) Neut % (Auto) Lymph % (Auto) [place] % (Auto) Eos % (Auto) Baso % (Auto) Lymph # (Auto) [place] # (Auto) Eos # (Auto) Baso # (Auto) Abs Immat Gran (auto) Absolute Neuts (auto) Absolute Nucleated RBC Nucleated RBC % (auto) ESR PT INR D-Dimer High Sensitivty Sodium Potassium Chloride Carbon Dioxide Anion Gap BUN Creatinine 0.76 Estim Creat Clear Calc 159.8 Estimated GFR > 60 POC Glucose 273 H 164 H Random Glucose Lactic Acid Calcium Total Bilirubin AST ALT Alkaline Phosphatase C-Reactive Protein Total Protein Albumin Vancomycin Trough Random Vancomycin COVID-19 (SOFY) COVID-19 [employer] (SMB) Limited 08/23/22 08/23/22 09:48 11:38 WBC RBC Hgb Hct MCV MCH MCHC RDW Plt Count MPV Immature Gran % (Auto) Neut % (Auto) Lymph % (Auto) [place] % (Auto) Eos % (Auto) Baso % (Auto) Lymph # (Auto) [place] # (Auto) Eos # (Auto) Baso # (Auto) Abs Immat Gran (auto) Absolute Neuts (auto) Absolute Nucleated RBC Nucleated RBC % (auto) ESR PT INR D-Dimer High Sensitivty Sodium Potassium Chloride Carbon Dioxide Anion Gap BUN Creatinine Estim Creat Clear Calc Estimated GFR POC Glucose 128 H Random Glucose Lactic Acid Calcium Total Bilirubin AST ALT Alkaline Phosphatase C-Reactive Protein Total Protein Albumin Vancomycin Trough 11.5 Random Vancomycin COVID-19 (SOFY) COVID-19 Clin Com Airway Mallampati Class: IV TM Dist: >3cm Neck ROM: Full Partial: Upper Loose/Missing/Broken Teeth: Yes (Poor dentition ) Heart: S1,S2 Lungs: b/l breath sounds Assessment and Plan Assessment Anesthesia Assessment: Anesthesia Plan Discussed, Smoking Cess. Discussed and Chart Reviewed Final Anesthetic Review Family History of Problems with Anesthesia: No History of Problems with Anesthesia: Yes NPO: Yes ASA Class: III and Emergency Final Preanesthetic Review: Meds/Allgs Chart Reviewed, Consent Obtained/Reviewed and Anes Risks/Benef Reviewed Patient Risk: High Procedure Risk: Intermediate Anesthetic Plan Anesthetic Plan: GA Disposition: Inp. Admit - Standard Bed
[2022-08-23 17:05] LABS: Glucose, Whole Blood 153 mg/dL (60-115)
--- NOTE | 2022-08-23 17:11 | HO.PM.IMPN ---
Subjective Subjective Date of Service: 08/23/22 Interval History: Complaining of right hand, left foot and left knee pain, denies fever chills, tolerating diet no nausea no vomiting no diarrhea, no acute issues overnight. Review of Systems [employer] no headache no dizziness CVS no chest pain, no palpitation no urgency, no frequency Review of Systems: Yes all other systems are reviewed and are negative Physical Exam Vital Signs: Vital Signs: Last Vital Signs Temp 97.9 F 08/23/22 16:18 Pulse 82 08/23/22 16:18 Resp 16 08/23/22 16:18 BP 118/72 08/23/22 16:18 Pulse Ox 96 08/23/22 16:18 O2 Del Method 08/23/22 16:18 BMI result Body Mass Index 33.3 General resting comfortably in no acute distress. Neck no JVD. CVS regular rate rhythm, Respiratory lungs clear to auscultation, no respiratory distress, no wheeze, no rhonchi. Gastrointestinal abdomen soft, nontender, bowel sounds audible, no guarding , no rigidity. Extremities right hand localized swelling, erythema tenderness, no open area, left knee mild area of redness and swelling at left knee cap Neuro nonfocal Psych appropriate affect Objective Data Active Medications Acetaminophen (Acetaminophen 325 Mg Tablet) 650 mg PO Q6H PRN PRN Reason: Pain, Mild (Pain Scale 1-3) Atorvastatin Calcium (Atorvastatin Calcium 40 Mg Tablet) 40 mg PO BEDTIME [facility] Bupropion HCl (Bupropion Hcl Xl 300 Mg Tab.Er.24h) 300 mg PO DAILY [facility] Last Admin: 08/23/22 10:37 Dose: 300 mg Documented By: LE Clonidine HCl (Clonidine Hcl 0.1 Mg Tablet) 0.1 mg PO TID [facility]; Protocol Last Admin: 08/23/22 15:08 Dose: 0.1 mg Documented By: LE Dextrose (Dextrose 50 % 25 Gm/50 Ml Syringe) 25 gm IVPUSH Q15M PRN; Protocol PRN Reason: per Hypoglycemia Standing Ord. Docusate Sodium (Docusate Sodium 100 Mg Capsule) 100 mg PO DAILY PRN PRN Reason: Constipation Ezetimibe (Ezetimibe 10 Mg Tablet) 10 mg PO DAILY [facility] Last Admin: 08/23/22 10:37 Dose: 10 mg Documented By: LE Enoxaparin Sodium (Enoxaparin Sodium 40 Mg/0.4 Ml Syringe) 40 mg SUBCUT Q24H [facility] Last Admin: 08/23/22 01:05 Dose: Not Given Documented By: PRAVEENA Non-Admin Reason: surgical procedure in am Gabapentin (Gabapentin 300 Mg Capsule) 300 mg PO DAILY [facility] Last Admin: 08/23/22 10:38 Dose: 300 mg Documented By: LE Glucose (Glucose Gel 15 Gm Gel..Gram.) 15 gm PO Q15M PRN; Protocol PRN Reason: per Hypoglycemia Standing Ord. Hydroxyzine HCl (Hydroxyzine Hcl 25 Mg Tablet) 25 mg PO Q12H PRN PRN Reason: Anxiety Cefepime HCl 2 gm/ Sodium (Chloride) 50 mls @ 100 mls/hr IV Q8H [facility] Last Infusion: 08/23/22 11:47 Dose: 0 mls/hr Documented By: LE Vancomycin HCl 1,250 mg/ (Sodium Chloride) 250 mls @ 166.667 mls/hr IV Q8H [facility] Last Infusion: 08/23/22 14:09 Dose: 0 mls/hr Documented By: LE Lidocaine HCl 8.11 ml/Epinephrine 0.08 mg/ Sodium Bicarbonate 0.405 meq/ IV Miscellaneous Supplies 9 mls @ 0 mls/hr INFILTRATI ONCE ONE Stop: 08/24/22 07:01 Insulin Glargine (Insulin Glargine,Hum.Rec.Anlog 100 Unit/Ml 10 Ml Vial) 35 unit SUBCUT BID [facility] Last Admin: 08/23/22 10:38 Dose: 35 unit Documented By: LE Insulin Human Lispro (Insulin Lispro 100 Unit/Ml 3 Ml Vial) 0 unit SUBCUT QIDACHS [facility]; Protocol Last Admin: 08/23/22 12:28 Dose: Not Given Documented By: LE Non-Admin Reason: No Insulin Coverage [place] Carbonate ([place] Carbonate 300 Mg Capsule) 300 mg PO BID [facility] Last Admin: 08/23/22 10:37 Dose: 300 mg Documented By: LE Lorazepam (Lorazepam 1 Mg Tablet) 1 mg PO Q4H PRN PRN Reason: anxiety/restlessness Morphine Sulfate (Morphine Sulfate 4 Mg/Ml Cartridge) 4 mg IVPUSH Q4H PRN; Protocol PRN Reason: Pain, Severe (Pain Scale 7-10) Last Admin: 08/23/22 15:07 Dose: 4 mg Documented By: LE Nicotine (Nicotine 14 Mg Patch.Td24) 14 mg TRANSDERMA DAILY [facility] Last Admin: 08/23/22 10:38 Dose: 14 mg Documented By: LE Omeprazole (Omeprazole 40 Mg Capsule.Dr) 40 mg PO DAILY@0630 [facility] Ondansetron HCl (Ondansetron Hcl 4 Mg/2 Ml Vial) 4 mg IVPUSH Q8H PRN PRN Reason: Nausea and Vomiting Last Admin: 08/22/22 05:36 Dose: 4 mg Documented By: ELIZABETHENDEamon Oxycodone HCl (Oxycodone Hcl Immed Release 5 Mg Tablet) 10 mg PO Q4H PRN PRN Reason: Pain, Mild (Pain Scale 1-3) Last Admin: 08/23/22 12:37 Dose: 10 mg Documented By: LE Pharmacy Consult (Consult Rx Perform Med Rec) 1 each MISCELLANE ONCE PRN PRN Reason: Consult order Sodium Chloride (0.9 % Sodium Chloride Flush 3 Ml Syringe) 3 ml IVFLUSH QSHIFT [facility] Last Admin: 08/23/22 10:39 Dose: 3 ml Documented By: LE Labs CBC & Chem 7: 08/21/22 08:26 08/23/22 05:14 Labs: Laboratory Results - last 24 hr 08/22/22 08/23/22 08/23/22 19:54 05:14 07:53 Estim Creat Clear Calc 159.8 Estimated GFR > 60 POC Glucose 273 H 164 H Vancomycin Trough 08/23/22 08/23/22 08/23/22 09:48 11:38 16:15 Estim Creat Clear Calc Estimated GFR POC Glucose 128 H 153 H Vancomycin Trough 11.5 Microbiology Microbiology Results: Microbiology 08/20/22 23:52 Gram Stain - Final Hand Right Routine Culture - Final 08/20/22 23:41 Blood Culture - Preliminary Blood - Venous No growth after 48 hours. 08/20/22 23:41 Blood Culture - Preliminary Blood - Venous No growth after 48 hours. Assessment and Plan (1) IV drug user: Status: Acute (2) Abscess of skin or subcutaneous tissue: Status: Acute Plan 46-year-old male with past medical history of IV drug use presents to the hospital with pain in his hand found to have cellulitis of both hand and left knee Acute cellulitis and abscess right hand Still with erythema and edema right hand, left knee superficial inflammation, no abscess Will undergo I&D by Orthopedic surgery today continue IV cefepime and IV vancomycin blood cultures x2 negative CT shows evidence of abscess/abnormal collection no evidence of tenosynovitis or bursitis diabetes Blood sugars less than 200, will continue low-dose sliding scale insulin diabetic diet Diabetic foot wound pain and swelling CT neg for abscess addiction consult for community resources DVT prophylaxis with Lovenox Full code sign Continue hospitalization for treatment of cellulitis/abscess to his right hand Quality Stroke Does the patient have a stroke diagnosis?: No VTE Prior VTE?: No VTE Risk Level:: Medical - moderate - high VTE Device Contraindication: Treatment Not Indicated VTE Drug Contraindication: N/A - Med Ordered
--- NOTE | 2022-08-23 18:08 | MHC.SHP ---
Pre-Procedural Eval Section A Date of Service: 08/23/22 The patient is an INPATIENT: Yes Changes since office visit: Yes New Medical Problems The History & Physical has been completed within 30 days and I have reviewed it.: Yes Section B Chief Complaint: cellulitis, abscess Allergies: Allergies Allergy/AdvReac Type Severity Reaction Status Date / Time Penicillins [PENICILLINS] Allergy Unknown UNKNOWN Verified 08/20/22 16:50 Exam Exam Comment: the patient has an abscess on the thenar aspect of the right thumb in the radial aspect of the right wrist. Since he was last seen he has developed a new abscess on the dorsal lateral aspect of the left wrist. It is tender red and fluctuanct and measures approximately 1.5 cm in diameter. The risks and benefits of operative treatment were discussed with the patient and the patient wishes to proceed with surgery. These risks include, but are not limited to risk of damage to blood vessels, nerves, tendons, infection, recurrence, incomplete relief of preoperative symptoms, persistent pain, possible need for further surgery and the risks associated with regional blocks and anesthesia. The plan is to take the patient to the operating room Today for the following procedures: 1. I&D right hand and wrist abscesses 2. I and D left wrist abscess All of the preoperative paperwork including the consent was filled out today and signed. All the patient's questions were answered. Plan I have reviewed the history and physical and performed a pertinent physical examination on my patient. No changes have occurred unless specified.
--- NOTE | 2022-08-23 18:11 | P.OP_ITS ---
Operative Note Operative Note Date of Service: 08/23/22 Narrative: Operative Note Narrative: Preop diagnosis: 1. Right thenar mass abscess 2. Right radial wrist abscess 3. Left dorsal lateral wrist abscess Postop diagnosis: Same Procedure: 1. Right thenar mass I and D 2. Right radial wrist abscess I and D 3. Left dorsal lateral wrist abscess I and D Surgeon: Tri Hernandez MD Anesthesia: General Anesthesia Findings: yellow creamy purulence from the right radial wrist abscess and from the left dorsal lateral wrist abscess. More watery purulence from the thenar mass which appears to have already started to drain Implants: none Tourniquet time: 0 minutes EBL: 5.0 ml Specimen: cultures from right radial wrist abscess and from left dorsal wrist abscess. Patient is on IV antibiotics Drains: None Complications: None Disposition: Brought to the recovery room in stable condition Plan: admit back to floor for continued treatment of areas of cellulitis with IV antibiotics Follow-up in 10-14 days for wound check, suture removal and to check pathology Indications: The patient is a 46 year old man with substance abuse issues with drug related abscesses to the right thenar mass, right radial wrist, and now the dorsal lateral aspect of the left wrist . The risks and benefits of operative treatment, including but not limited to risk of damage to blood vessels, nerves, tendons, infection, recurrence, persistent pain or numbness, incomplete resolution of preoperative symptoms, or need for further surgery were discussed with the patient and they wished to proceed with surgery. Procedure: Once consent was obtained patient was brought back to the operating suite and placed in the operating table in a supine position. . Perioperative antibiotics and anesthesia was administered by the anesthesia team. A tourn iquet was applied to the proximal aspect of the bilateral upper extremity and the limb was prepped and draped in a standard surgical fashion. The tourniquets were not inflated. I made a 1.5 cm longitudinal incision in line with the area that was already draining on the radial aspect of the right wrist. There is creamy yellow purulence we took cultures of the purulence. I used a hemostat to properly evacuate the abscess. The skin was debrided of nonviable tissue. The wound was copiously irrigated with normal saline. ?I made a 1.5 cm longitudinal incision in line with the area that was already draining on the Right thenar mass.? There is more watery purulence..? I used a hemostat to properly evacuate the abscess.? The skin was debrided of nonviable tissue.? The wound was copiously irrigated with normal saline. ?I made a 1.5 cm longitudinal incision in line with the 1.5 cm abscess over the dorsal lateral aspect of the left wrist..? There is creamy yellow purulence we took cultures of the purulence.? I used a hemostat to properly evacuate the abscess.? The skin was debrided of nonviable tissue.? The wound was copiously irrigated with normal saline. Iodoform gauze drains were placed in all wounds to promote drainage. Sterile dressings were then applied. The patient appears to have tolerated the procedure well and with no complications. All digits were well vascularized conclusion of the case.
[2022-08-23 19:54] LABS: Glucose, Whole Blood 93 mg/dL (60-115)
[2022-08-23] MEDS: Atorvastatin Calcium 40 MG TABLET PO (20:38)
[2022-08-23] MEDS: LORazepam 1 MG TABLET PO (20:38)
[2022-08-24] VITALS (7 sets, daily range): BP systolic 123–190; BP diastolic 66–92; PULSE 75–91; RESP 16–20; TEMP 36–37.6; O2SAT 90–97
[2022-08-24] MEDS: Enoxaparin Sodium 40 MG/0.4 ML SYRINGE SUBCUT ×2 (00:32→23:49)
[2022-08-24] MEDS: vancomycin HCL 1,250 MG in 0.9 % Sodium Chloride 250 ML 166.67 MG IV ×2 (03:43→19:31)
[2022-08-24] MEDS: Omeprazole 40 MG CAPSULE.DR PO (05:28)
[2022-08-24] MEDS: Morphine Sulfate 4 MG/ML CARTRIDGE IVPUSH ×4 (05:28→22:05)
[2022-08-24] MEDS: cefEPime HCl 2 GM in 0.9 % Sodium Chloride 50 ML IV ×3 (05:28→22:06)
[2022-08-24 07:38] LABS: Glucose, Whole Blood 183 mg/dL (60-115)
[2022-08-24] MEDS: Lithium Carbonate 300 MG CAPSULE PO ×2 (08:23→19:32)
[2022-08-24] MEDS: Gabapentin 300 MG CAPSULE PO (08:24)
[2022-08-24] MEDS: Insulin Lispro 100 UNIT/ML 3 ML VIAL SUBCUT ×4 (08:24→22:05)
[2022-08-24] MEDS: Nicotine 14 MG PATCH.TD24 TRANSDERMA (08:24)
[2022-08-24] MEDS: Ezetimibe 10 MG TABLET PO (08:24)
[2022-08-24] MEDS: cloNIDine HCL 0.1 MG TABLET PO ×3 (08:24→19:31)
[2022-08-24] MEDS: Insulin Glargine,Hum.rec.anlog 100 UNIT/ML 10 ML VIAL 35 UNIT SUBCUT ×2 (08:24→22:05)
[2022-08-24] MEDS: buPROPion HCl XL 300 MG TAB.ER.24H PO (08:24)
[2022-08-24] MEDS: 0.9 % Sodium Chloride Flush 3 ML SYRINGE IVFLUSH ×3 (08:25→19:33)
[2022-08-24] MEDS: Acetaminophen 325 MG TABLET 650 MG PO ×2 (08:30→19:41)
[2022-08-24] MEDS: oxyCODONE HCl Immed Release 5 MG TABLET 10 MG PO ×3 (08:30→19:41)
--- NOTE | 2022-08-24 09:56 | PM.PNORT ---
Subjective Subjective Date of Service: 08/24/22 Interval history: POD 1 s/p : 1. Right thenar mass I and D ?2. Right radial wrist abscess I and D ?3. Left dorsal lateral wrist abscess I and D No overnight events Has mild discomfort Physical Exam Vital Signs: Vital Signs: Last Vital Signs Temp 99.7 F 08/24/22 07:29 Pulse 80 08/24/22 07:29 Resp 20 08/24/22 07:29 BP 142/87 H 08/24/22 07:29 Pulse Ox 95 08/24/22 07:29 O2 Del Method 08/24/22 07:29 BMI result Body Mass Index 33.3 Extrem: Other: Incisions clean , dry and intact, no purulant drainage. Mild swelling. Pulses and sensation intact throughout . Procedures Date of Service Date of Service: 08/24/22 Progress Note: A&P Assessment and plan (1) Cellulitis: Status: Acute (2) Abscess of skin or subcutaneous tissue: Status: Acute Plan Plan:? ?continued treatment of areas of cellulitis with IV antibiotics daily dry dressing changes Follow-up in 10-14 days for wound check, suture removal and to check pathology Time Spent With Patient Time: Total time spent is greater than 50% in coordination of care (as documented) at patient's floor/unit and/or counseling patient: Quality Stroke Does the patient have a stroke diagnosis?: No VTE Prior VTE?: No VTE Risk Level:: Medical - moderate - high VTE Device Contraindication: Treatment Not Indicated VTE Drug Contraindication: N/A - Med Ordered
[2022-08-24 10:04] LABS: Creatinine Clr Calc Pharmacy 139.6; Estimated Glomerular Filt Rate > 60
[2022-08-24 10:39] LABS: Vancomycin Trough 12.9 mcg/mL (10.0-20.0)
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
[2022-08-24 11:47] LABS: Glucose, Whole Blood 167 mg/dL (60-115)
[2022-08-24] MEDS: vancomycin HCL 1,250 MG in 0.9 % Sodium Chloride 250 ML 166 MG IV (12:18)
--- NOTE | 2022-08-24 15:44 | MHC.CM.PN ---
abcess drained 08/23/22 Awaiting cultures. no plan for dc today
[2022-08-24 15:55] LABS: Glucose, Whole Blood 176 mg/dL (60-115)
[2022-08-24] MEDS: Atorvastatin Calcium 40 MG TABLET PO (19:32)
[2022-08-24 19:59] LABS: Glucose, Whole Blood 239 mg/dL (60-115)
[2022-08-25 03:44] VITALS: BP 169/73; PULSE 73; RESP 18; TEMP 36.3; O2SAT 96
[2022-08-25] MEDS: Acetaminophen 325 MG TABLET 650 MG PO (03:48)
[2022-08-25] MEDS: oxyCODONE HCl Immed Release 5 MG TABLET 10 MG PO ×2 (03:48→08:20)
[2022-08-25] MEDS: vancomycin HCL 1,250 MG in 0.9 % Sodium Chloride 250 ML 166.67 MG IV (04:12)
[2022-08-25] MEDS: Omeprazole 40 MG CAPSULE.DR PO (05:44)
[2022-08-25] MEDS: cefEPime HCl 2 GM in 0.9 % Sodium Chloride 50 ML IV (05:44)
[2022-08-25 07:05] VITALS: BP 146/86; PULSE 71; RESP 18; TEMP 36.7; O2SAT 97
[2022-08-25 07:21] LABS: Glucose, Whole Blood 159 mg/dL (60-115)
[2022-08-25] MEDS: cloNIDine HCL 0.1 MG TABLET PO (08:15)
[2022-08-25] MEDS: Ezetimibe 10 MG TABLET PO (08:15)
[2022-08-25] MEDS: Gabapentin 300 MG CAPSULE PO (08:15)
[2022-08-25] MEDS: Lithium Carbonate 300 MG CAPSULE PO (08:15)
[2022-08-25] MEDS: buPROPion HCl XL 300 MG TAB.ER.24H PO (08:15)
[2022-08-25] MEDS: Insulin Glargine,Hum.rec.anlog 100 UNIT/ML 10 ML VIAL 35 UNIT SUBCUT (08:16)
[2022-08-25] MEDS: Insulin Lispro 100 UNIT/ML 3 ML VIAL SUBCUT ×2 (08:16→11:36)
[2022-08-25] MEDS: 0.9 % Sodium Chloride Flush 3 ML SYRINGE IVFLUSH (08:16)
[2022-08-25] MEDS: Nicotine 14 MG PATCH.TD24 TRANSDERMA (08:16)
[2022-08-25 10:28] LABS: Creatinine Clr Calc Pharmacy 139.6; Estimated Glomerular Filt Rate > 60
[2022-08-25 10:41] LABS: Vancomycin Trough 13.6 mcg/mL (10.0-20.0)
[2022-08-25 10:50] LABS: HIV AB/AG Nonreactive (Nonreactive); HIV Num 1 0.05 S/CO (0.00-0.99)
[2022-08-25 10:55] LABS: Glucose, Whole Blood 251 mg/dL (60-115)
[2022-08-25] MEDS: Morphine Sulfate 4 MG/ML CARTRIDGE IVPUSH (10:58)
[2022-08-25 11:07] VITALS: BP 119/80; PULSE 82; RESP 18; TEMP 36.3; O2SAT 96
--- NOTE | 2022-08-25 11:21 | MHC.CM.PN ---
PT EXPECTED TO DC HOME TODAY WITH PLAN TO F/U WITH ORTHO PT TO ARRANGE TRANSPORT
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
--- NOTE | 2022-08-25 13:37 | HO.POSTANES ---
Post Anesthesia Evaluation Post Anesthesia Evaluation Vital Signs: Vital Signs Temp Pulse Resp BP Pulse Ox O2 Del Method 08/25/22 11:07 97.4 F 82 18 119/80 96 Room Air 08/25/22 07:05 98.0 F 71 18 146/86 H 97 Room Air 08/25/22 03:44 97.4 F 73 18 169/73 H 96 Room Air Anesthesia: General Mental Status: Awake Pain Control: Satisfactory Nausea/Vomiting: None Hydration: Adequate Anesthesia-Related Issues: No Anes. Related Issues
== END 2022-08-25 12:16 | disposition home or self-care (01) | DRG 603 ==
LOC: HO.ED 22:46 → HO.EDOVER 08-21 00:51 → HO.S3 08-22 12:06
PROVIDERS: Nurse Practitioner Acute Care; Orthopaedic Surgery; Admitting Provider Internal Medicine; Emergency Provider Internal Medicine; PCP Internal Medicine; Visit Provider Hospitalist
PROC: 0H9FXZZ Drainage of Right Hand Skin, External Approach (ICD-10-PCS; principal; 2022-08-23 16:00)
DX: L02.511 Cutaneous abscess of right hand (principal); L03.113 Cellulitis of right upper limb; L03.116 Cellulitis of left lower limb; L02.414 Cutaneous abscess of left upper limb; L02.413 Cutaneous abscess of right upper limb; L97.429 Non-pressure chronic ulcer of left heel and midfoot with unspecified severity; F31.9 Bipolar disorder, unspecified; F91.0 Conduct disorder confined to family context; E11.621 Type 2 diabetes mellitus with foot ulcer; I10 Essential (primary) hypertension; F17.210 Nicotine dependence, cigarettes, uncomplicated; E66.9 Obesity, unspecified; Z71.6 Tobacco abuse counseling; Z68.33 Body mass index [BMI] 33.0-33.9, adult; Z20.822 Contact with and (suspected) exposure to COVID-19; Z88.0 Allergy status to penicillin; Z79.4 Long term (current) use of insulin; Z79.84 Long term (current) use of oral hypoglycemic drugs; Z79.899 Other long term (current) drug therapy
CPT/HCPCS: 36415; 73201; 73560; 73700; 80048; 80053; 80202; 82565; 82947; 83605; 85025; 85379; 85610; 85652; 86140; 87040; 87070; 87077; 87186; 87205; 87389; 87635; 93971; 99285; J0131; J0692; J0696; J1650; J2250; J2270; J2370; J2405; J2795; J3010; J3370; Q9967